=== PATIENT | female | born 1935 | race Caucasian/White ===

== ENCOUNTER → 2016-06-13 09:04 | Outpatient (CLI) | payer MEDICARE, BC ==
[2014-10-09 15:14] VITALS: BMI 35.6
[~2016-06-13 09:04] MED LIST: ACETAMINOPHEN325 MG PO; BAYER CHEWABLE81 MG PO; CALCIUM 600 +1 EAC3 PO; HYDROCHLOROTHIA25 MG PO; K-TAB10 MEQ PO; MULTIPLE VITAMI1 TA1 PO; PRILOSEC20 MG PO; SCOT-TUSSI10 MG/5 ML PO; TIROSINT25 MCG PO; VITAMIN D31000 UNIT PO; ZANTAC150 MG PO
== END | disposition home or self-care (01) ==
LOC: D.RAD 09:04
DX: R13.10 Dysphagia, unspecified (principal)

== ENCOUNTER 2016-08-29 08:28 | Day surgery (SDC) | payer MEDICARE, BC ==
[~2016-08-29] VITALS: Ht 170.2 cm; Wt 106.8 kg
[~2016-08-29 08:28] MED LIST changes: +HYDROCHLOROTH12.5 M1 PO; -HYDROCHLOROTHIA25 MG PO; +OMEPRAZOLE40 MG PO; -PRILOSEC20 MG PO
[2016-08-29 09:21] LABS: BASOPHILS 0.7 % (0-2); EOSINOPHILS 4.1 % (0-7); HEMATOCRIT 40.2 % (36.0-48.0); HEMOGLOBIN 13.1 g/dL (12-16); IMMATURE GRANULOCYTES 0.3 % (0-5); LYMPHOCYTES 16.4 % (15-50); MCH 28.1 pg (26.0-34.0); MCHC 32.6 g/dL (31.0-37.0); MCV 86.3 fL (80.0-100.0); MEAN PLATELET VOLUME 9.6 fL (7.4-10.4); MONOCYTES 8.9 % (2-11); NEUTROPHILS 69.6 % (40-80); PLATELET COUNT 280 10x3/uL (130-400); RBC 4.66 10x6/uL (4.00-5.40); RDW 13.4 % (11.5-14.5); WBC 8.9 10x3/uL (4.8-10.8)
[2016-08-29 09:33] LABS: ANION GAP 11.9 mmol/L (8-16); CALCIUM 8.9 mg/dL (8.5-10.1); CARBON DIOXIDE 28.6 mmol/L (21.0-32.0); CREATININE - SERUM 0.9 mg/dL (0.6-1.3); POTASSIUM - SERUM 3.5 mmol/L (3.5-5.1)
[2016-08-29] MEDS ORDERED: CELEXA20 MG PO (09:33)
[2016-08-29] MEDS ORDERED: TYLENOL ARTHRITIS PO (09:37)
[2016-08-29 09:47] VITALS: BP 137/64; Ht 170.2 cm; Wt 106.8 kg
[2016-08-29] MEDS ORDERED: CARAFATE1 G (13:01)
--- NOTE | 2016-08-29 16:52 | NUR ---
1305 DERSSED, AWAKE, & ALERT. GIVEN DISCHARGE INFORMATION INCLUDING: RX FOR CARAFATE, MED REC., SHEET LISTING NSAIDS & BLOOD THINNERS TO AVOID, & [facility] D/C INSTRUCTIONS SHEET POST ENDOSCOPIC PROCEDURES OPS. PT VOICED UNDERSTANDING. TO [facility] PER WHEELCHAIR. HOME ACCOMPANIED BY FEMALE FRIEND & ASSOCIATE PROFESSOR OF THEOLOGY. Jose LEW R.N.
--- NOTE | 2016-09-01 13:06 | OP ---
PATIENT NAME: SIDNEY RAPHAEL MEDICAL RECORD: [id number] :36 LOCATION:D.OPS ADMISSION DATE: SURGEON: KARISHMA CHUN DO OPERATION DATE: 08/29/16 DATE OF OPERATION: 08/29/2016 PROCEDURE: EGD with biopsies. INDICATIONS: Dysphagia. SCOPE: Olympus video gastroscope. MEDICATIONS: Propofol 250 mg IV per anesthesia. ESTIMATED BLOOD LOSS: Less than 2 mL. COMPLICATIONS: None. FINDINGS: Informed consent was given. The patient was made comfortable with the above medication. After reaching an adequate level of sedation by slow IV push, the patient was placed on her left side. The endoscope was then advanced under direct visualization through the mouth to the second portion of the duodenum. The upper, middle, and lower thirds of the esophagus appeared normal. Just proximal to the GE junction, there was a ring present consistent with a Schatzki ring. At the end of the procedure, it was dilated with a 15-18 mm CRE balloon up to 18 mm maximum diameter successfully. At the GE junction, there was some evidence of some mild LA class A reflux-induced esophagitis. A biopsy was taken. The endoscope was advanced beyond the GE junction into the stomach and retroflexed to view the cardia where a small sliding hiatal hernia was present. In the stomach, there were some patchy areas of erythema and granularity consistent with gastritis. Random biopsies were taken to submit for histology and to rule out H. pylori. The endoscope was advanced beyond the pylorus into the duodenum where the bulb and second portion of the duodenum appeared normal. The scope was withdrawn from the patient. The patient tolerated the procedure well and there were no complications. IMPRESSION: 1. 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 2. Mild LA class A reflux-induced esophagitis. 3. Small sliding hiatal hernia. 4. Gastritis, biopsies taken. PLAN AND RECOMMENDATIONS: 1. Discharge home when recovery parameters are met. 2. Follow up biopsy specimen results. 3. GERD diet and reflux precautions. 4. Continue current medications. 5. Schedule colonoscopy regarding the diarrhea. 6. Week-long trial of Carafate regarding symptoms. TRANSINT:[id number] Voice Confirmation ID: [id number] DOCUMENT ID: [id number] OPERATIVE REPORT [id number] SIDNEY RAPHAEL KARISHMA CHUN DO at 1306 CC: [id number] DICTATION DATE: 08/29/16 1139 CRIMINAL ATTORNEY: 08/29/16 1319 [facility] 08/29/16 [id number] [place] [address]
== END 2016-08-29 13:10 | disposition home or self-care (01) ==
LOC: D.OPS 08:28
PROVIDERS: Anesthesiology
DX: R13.10 Dysphagia, unspecified (principal); K22.2 Esophageal obstruction; K44.9 Diaphragmatic hernia without obstruction or gangrene; K29.70 Gastritis, unspecified, without bleeding; I10 Essential (primary) hypertension; E11.9 Type 2 diabetes mellitus without complications; E03.9 Hypothyroidism, unspecified; Z01.812 Encounter for preprocedural laboratory examination

== ENCOUNTER 2016-10-05 10:08 | Day surgery (SDC) | payer MEDICARE, BC ==
[~2016-10-05] VITALS: Ht 170.2 cm; Wt 105.5 kg
--- NOTE | ~2016-10-05 | OP ---
PATIENT NAME: SIDNEY RAPHAEL MEDICAL RECORD: [id number] :36 LOCATION:D.OPS ADMISSION DATE: SURGEON: KARISHMA CHUN DO DATE OF OPERATION: 10/05/2016 PROCEDURES: Colonoscopy with polypectomy and biopsy. INDICATIONS FOR PROCEDURE: History of colon polyps and diarrhea. Her last colonoscopy was 08/28/2014. SCOPE: Olympus video pediatric colonoscope. MEDICATIONS: Propofol 300 mg IV and Robinul 0.4 mg IV per anesthesia. WITHDRAWAL TIME: 14 minutes. ESTIMATED BLOOD LOSS: Minimal. COMPLICATIONS: None. FINDINGS: Informed consent was given. The patient was made comfortable with the above medication. After reaching an adequate level of sedation by slow IV push, the patient was placed on her left side. A digital rectal examination was performed and was normal. The endoscope was then advanced under direct visualization through the rectum to the terminal ileum. The scope was slowly withdrawn and mucosa was carefully examined. Prep quality is excellent. There was a single benign-appearing sessile polyp located in the descending colon which measured approximately 3 mm in diameter. It was removed using hot forceps and completely removed and retrieved. There were 2 sigmoid polyps, which appeared benign and sessile, measuring from 2 mm to 4 mm in diameter. They were removed using cold forceps. Random biopsies were taken throughout the colon to rule out microscopic colitis. There was also stool collected to send for further infectious studies including white blood cells, C. diff, culture, ova and parasites. Retroflexion was performed in the rectum with visualization of small nonbleeding internal hemorrhoids. The scope was withdrawn from the patient. The patient tolerated the procedure well and there were no complications. IMPRESSION: 1. Three polyps as described above, removed using hot and cold forceps. 2. Small nonbleeding internal hemorrhoids. 3. 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 PLAN AND RECOMMENDATIONS: 1. Discharge home when recovery parameters are met. 2. Continue current medications. 3. Follow up biopsy specimen results. 4. High-fiber diet. 5. Add dicyclomine 10 mg tablets 1-2 p.o. b.i.d. p.r.n. abdominal pain or loose stools. 6. Further recommendations will be given once results from stool studies and biopsies have return. 7. No further colonoscopies for surveillance based on history of polyps based on the patient's age. Further colonoscopies can be performed if warranted for OPERATIVE REPORT [id number] SIDNEY RAPHAEL. TRANSINT:[id number] Voice Confirmation ID: [id number] DOCUMENT ID: [id number] KARISHMA CHUN DO CC: [id number] DICTATION DATE: 10/05/16 1259 DISPATCH CLERK: 10/05/161930 [facility] 10/05/16 [facility] [address] [id number]
[~2016-10-05 10:08] MED LIST changes: +CARAFATE1 G; +CELEXA20 MG PO; +TYLENOL ARTHRITIS PO
[2016-10-05 10:51] VITALS: Ht 170.2 cm; Wt 105.5 kg
--- NOTE | 2016-10-05 11:25 | NUR ---
TAKES MEDS FROM [facility].
[2016-10-05 11:26] LABS: HEMATOCRIT 39.2 % (36.0-48.0); MCH 28.4 pg (26.0-34.0); MCHC 33.2 g/dL (31.0-37.0); MCV 85.6 fL (80.0-100.0); MEAN PLATELET VOLUME 9.7 fL (7.4-10.4); RBC 4.58 10x6/uL (4.00-5.40); RDW 13.3 % (11.5-14.5); WBC 9.1 10x3/uL (4.8-10.8)
[2016-10-05 11:47] LABS: ANION GAP 16.2 mmol/L (8-16); CALCIUM 9.5 mg/dL (8.5-10.1); CARBON DIOXIDE 27.6 mmol/L (21.0-32.0); POTASSIUM - SERUM 3.8 mmol/L (3.5-5.1)
--- NOTE | 2016-10-05 12:38 | NUR ---
1239STOOL OBTAINED DURING COLONOSCOPY AND SPECIMENS SENT TO LAB.
--- NOTE | 2016-10-05 13:46 | NUR ---
1347 DISCHARGE INSTRUCTIONS COMPLETE. SHE HAS NO QUESTIONS OR CONCERNS AT THIS TIME. ESCORTED OUT BY VOLUNTEER.
== END 2016-10-05 13:47 | disposition home or self-care (01) ==
LOC: D.OPS 10:08
PROVIDERS: Anesthesiology; Internal Medicine Gastroenterology
DX: D12.4 Benign neoplasm of descending colon (principal); D12.5 Benign neoplasm of sigmoid colon; I10 Essential (primary) hypertension; E11.9 Type 2 diabetes mellitus without complications; E03.9 Hypothyroidism, unspecified; K21.9 Gastro-esophageal reflux disease without esophagitis; E66.01 Morbid (severe) obesity due to excess calories; Z68.36 Body mass index [BMI] 36.0-36.9, adult; R19.7 Diarrhea, unspecified; K64.8 Other hemorrhoids; Z01.812 Encounter for preprocedural laboratory examination